=== PATIENT | male | born 1930 | race Caucasian/White ===

== ENCOUNTER 2018-07-18 13:19 | Observation (INO) | payer MEDICAID ==
[2018-07-18 13:52] LABS: ADD MAN DIFF? NO
[2018-07-18 13:55] LABS: BASOPHILS % 0.6 % (0.0-2.0); EOSINOPHILS # 0.1 10^3/ul (0.0-0.5); EOSINOPHILS % 2.2 % (0.0-7.0); HEMATOCRIT 34.7 % (42.0-52.0); HEMOGLOBIN 11.6 g/dl (14.0-18.0); LYMPHOCYTES % 20.2 % (15.0-51.0); MEAN CORPUSCULAR HEMOGLOBIN 31.7 pg (29.0-33.0); MEAN CORPUSCULAR HGB CONC 33.4 g/dl (32.0-37.0); MEAN CORPUSCULAR VOLUME 94.8 fl (82.0-101.0); MONOCYTE # 0.6 10^3/ul (0.3-0.9); MONOCYTES % 11.4 % (0.0-11.0); NEUTROPHIL # 3.2 10^3/ul (1.6-7.5); NEUTROPHILS % 65.4 % (39.0-77.0); PLATELET COUNT 173 10^3/UL (140-415); RED BLOOD COUNT 3.66 10^6/ul (4.70-6.10)
[2018-07-18 13:55] LABS: WHITE BLOOD COUNT 4.9 10^3/ul (4.8-10.8)
[2018-07-18 14:17] LABS: ANION GAP 8 (5-13); BLOOD UREA NITROGEN 12 mg/dl (7-20); CALCIUM 9.5 mg/dl (8.4-10.2); CARBON DIOXIDE 26 mmol/L (21-31); CHLORIDE 105 mmol/L (97-110); GLUCOSE 150 mg/dl (70-220); POTASSIUM 3.2 mmol/L (3.5-5.1); SODIUM 139 mmol/L (135-144)
[2018-07-18 14:29] LABS: TROPONIN-I 0.031 ng/ml (0.000-0.120)
[2018-07-18] MEDS: POTASSIUM CHLORIDE (SR) 20 MEQ TAB PO (15:25)
[2018-07-18] MEDS ORDERED: HYDROCODONE/APAP (5/325) TAB PO (17:30)
[2018-07-18] MEDS ORDERED: DOCUSATE SODIUM 100 MG CAP PO (17:30)
[2018-07-18] MEDS ORDERED: morphine 2 MG INJ IV (17:30)
[2018-07-18] MEDS ORDERED: ONDANSETRON 4 MG INJ IV (17:30)
[2018-07-18] MEDS ORDERED: ACETAMINOPHEN 325 MG TAB PO (17:30)
[2018-07-18] MEDS ORDERED: NACL 0.9% 3 ML SYG IV (17:30)
[2018-07-18] MEDS ORDERED: ZOLPIDEM 5 MG TAB PO (17:30)
[2018-07-18] MEDS: POTASSIUM CHLORIDE 40 MEQ in SOD CHLORIDE 0.9% 1,000 ML IV (17:52)
[2018-07-18 19:56] LABS: CREATINE KINASE 21 IU/L (23-200)
[2018-07-18 20:08] LABS: CK INDEX 1.7; CK-MB 0.36 ng/ml (0.0-2.4)
[2018-07-18] MEDS: ATORVASTATIN 80 MG TAB PO (21:06)
[2018-07-19 01:15] LABS: CREATINE KINASE < 20 IU/L (23-200)
[2018-07-19 01:25] LABS: CK-MB 0.42 ng/ml (0.0-2.4); TROPONIN-I 0.078 ng/ml (0.000-0.120)
[2018-07-19 06:04] LABS: ADD MAN DIFF? NO
[2018-07-19 06:10] LABS: WHITE BLOOD COUNT 4.4 10^3/ul (4.8-10.8)
[2018-07-19 06:10] LABS: BASOPHILS % 0.9 % (0.0-2.0); EOSINOPHILS # 0.2 10^3/ul (0.0-0.5); EOSINOPHILS % 4.1 % (0.0-7.0); HEMATOCRIT 32.8 % (42.0-52.0); HEMOGLOBIN 10.9 g/dl (14.0-18.0); LYMPHOCYTES % 23.6 % (15.0-51.0); MEAN CORPUSCULAR HEMOGLOBIN 32.2 pg (29.0-33.0); MEAN CORPUSCULAR HGB CONC 33.2 g/dl (32.0-37.0); MEAN CORPUSCULAR VOLUME 96.8 fl (82.0-101.0); MEAN PLATELET VOLUME 9.8 fl (7.4-10.4); MONOCYTE # 0.6 10^3/ul (0.3-0.9); MONOCYTES % 12.9 % (0.0-11.0); NEUTROPHIL # 2.6 10^3/ul (1.6-7.5); NEUTROPHILS % 58.3 % (39.0-77.0); PLATELET COUNT 153 10^3/UL (140-415); RED BLOOD COUNT 3.39 10^6/ul (4.70-6.10); RED CELL DISTRIBUTION WIDTH 13.1 % (11.5-14.5)
[2018-07-19 06:44] LABS: ANION GAP 8 (5-13); BLOOD UREA NITROGEN 12 mg/dl (7-20); CALCIUM 9.1 mg/dl (8.4-10.2); CARBON DIOXIDE 26 mmol/L (21-31); CHLORIDE 107 mmol/L (97-110); CREATININE 0.61 mg/dl (0.61-1.24); GLUCOSE 99 mg/dl (70-220); PHOSPHORUS 3.7 mg/dl (2.5-4.9); POTASSIUM 4.2 mmol/L (3.5-5.1); SODIUM 141 mmol/L (135-144)
[2018-07-19 07:06] LABS: HEMOGLOBIN A1C 5.5 % (0-5.9)
[2018-07-19] MEDS: METOPROLOL (XL) 50 MG TAB PO (08:23)
[2018-07-19] MEDS: ASPIRIN 81 MG TAB PO (08:23)
[2018-07-19] MEDS: CLOPIDOGREL 75 MG TAB PO (08:24)
[2018-07-19] MEDS: ENOXAPARIN 40 MG/0.4 ML SYG SC (08:40)
[2018-07-19] MEDS: POTASSIUM CHLORIDE 40 MEQ in SOD CHLORIDE 0.9% 1,000 ML IV (10:10)
== END 2018-07-19 11:00 | disposition home or self-care (01) ==
LOC: E/R 13:19 → TEL 17:14
DX: R55 Syncope and collapse (principal); I25.10 Atherosclerotic heart disease of native coronary artery without angina pectoris; I10 Essential (primary) hypertension; E87.6 Hypokalemia; Z95.1 Presence of aortocoronary bypass graft
CPT/HCPCS: 36415; 70450; 71045; 80048; 82550; 82553; 83036; 83735; 84100; 84484; 85025; 93005; 93306; 93880; 97161; 99285-25; G0378